=== PATIENT | female | born 1980 | race African-American/Black ===

== ENCOUNTER 2016-12-25 12:29 | Inpatient (IN) | payer BC, MEDICAID ==
[2016-12-25] MEDS ORDERED: RINGERS SOLUTION,LACTATED 300 ML IV ONE (14:31)
--- NOTE | 2016-12-25 14:52 | Non Stress Test Report ---
Non Stress Test Datetime Report Generated by CPN: 12/25/2016 14:52 DEMOGRAPHIC Test Number: 1 EGA NST: 40.1 INDICATION Indication for Study: Ordered by Provider; Other Indication for Study (NST) Other: Nonreactive NST MONITORING Monitor Explained: Monitor Explained; Test Explained; Patient Verbalized Understanding Time on Monitor: 12/25/2016 14:16 Time off Monitor: 12/25/2016 14:45 NST Duration: 29 NST INTERVENTIONS NST Interventions: PO Hydration; IV Fluids; Reposition Patient; For Biophysical Profile Physician Notified NST: Dr. Jerome/Dasia Burns CN BABY A: [id number] BABY A Movement : Present Contraction Frequency : Occ Accelerations : 15X15 Decelerations : None Variability : Moderate 6-25bpm NST Review: Meets Criteria for Reactive NST NST Review and Verified By : Dasia Frank RN NST Results: Reactive NST REPORT Report Trigger: Send Report
[2016-12-25 15:07] LABS: ABSOLUTE EOSINOPHILS # (AUTO) 0.1 10^3/uL (0.0-0.6); ABSOLUTE LYMPHOCYTES (AUTO) 1.5 10^3/uL (0.5-4.7); ABSOLUTE MONOCYTES (AUTO) 0.9 10^3/uL (0.1-1.4); ABSOLUTE NEUT (AUTO) 4.4 10^3/uL (1.7-8.2); BASOPHILS % (AUTO) 0.5 % (0-2); EOSINOPHILS % (AUTO) 1.6 % (0-6); HEMATOCRIT 34.7 % (36.0-47.0); HEMOGLOBIN 11.3 g/dL (12.0-15.5); HGB HCT DIFFERENCE -0.8; LYMPHOCYTES % (AUTO) 21.7 % (13-45); MEAN CORPUSCULAR HEMOGLOBIN 27.3 pg (27.0-33.4); MEAN CORPUSCULAR HGB CONC 32.6 g/dL (32.0-36.0); MEAN CORPUSCULAR VOLUME 84 fl (80-97); MONOCYTES % (AUTO) 12.4 % (3-13); RED BLOOD COUNT 4.14 10^6/uL (3.72-5.28); RED CELL DISTRIBUTION WIDTH 14.5 % (11.5-14.0); SEGMENTED NEUTROPHILS % (AUTO) 63.8 % (42-78)
[2016-12-25 15:09] LABS: APPEARANCE,URINE SLIGHTLY-CLOUDY; BILIRUBIN,URINE NEGATIVE (NEGATIVE); GLUCOSE, URINE NEGATIVE (NEGATIVE); KETONES,URINE NEGATIVE (NEGATIVE); LEUKOCYTE ESTERASE,URINE TRACE (NEGATIVE); NITRITE,URINE NEGATIVE (NEGATIVE); PROTEIN,URINE NEGATIVE (NEGATIVE); URINE SPECIFIC GRAVITY 1.011; UROBILINOGEN,URINE NEGATIVE mg/dL (<2.0)
[2016-12-25 15:46] LABS: URINE BARBITURATES SCREEN NEGATIVE; URINE METHADONE SCREEN NEGATIVE; URINE OPIATES LOW NEGATIVE; URINE PHENCYCLIDINE SCREEN NEGATIVE
--- NOTE | 2016-12-25 15:57 | RADIOLOGY REPORT (SQ) ---
EXAM DESCRIPTION: U/S PROFILE W/O STRESS COMPLETED DATE/TIME: 12/25/2016 3:36 pm REASON FOR STUDY: Nonreactive NST COMPARISON: None. TECHNIQUE: Limited bae-scale realtime and static images of the fetus to measure specified parameter s. LIMITATIONS: None. FINDINGS: HEART RATE: 152 beats per minute. POSTURE AND TONE: 2 points. MOVEMENT: 2 points. BREATHING MOVEMENT: 2 points. QUALITATIVE SARAH: 2 points. OTHER: Fetus is in cephalic presentation. IMPRESSION: BIOPHYSICAL PROFILE: 02/23. Trimester of : Third - 28 weeks to delivery COMMENT: BREATHING MOVEMENTS: 2 POINTS: PRESENT 0 POINTS: ABSENT MOTION: 2 POINTS: PRESENT 0 POINTS: ABSENT TONE: 2 POINTS: PRESENT 0 POINTS: ABSENT AMNIOTIC FLUID VOLUME: 2 POINTS: LARGEST POCKET GREATER THAN 2 CM DEPTH. 0 POINTS: NO POCKET OF 2 CM. TECHNICAL DOCUMENTATION: JOB ID: [id number] [employer]- All Rights Reserved
[2016-12-25] MEDS: RINGERS SOLUTION,LACTATED 1,000 ML IV PRN (15:59)
[2016-12-25] MEDS ORDERED: OXYTOCIN/NORMAL SALINE 20 UNIT/1,000 ML RTUINJ ONE (16:41)
[2016-12-25] MEDS: OXYTOCIN/NORMAL SALINE 1,000 ML IV PRN (16:51)
[2016-12-26] MEDS ORDERED: MISOPROSTOL 0.2 MG TABLET ONE (03:07)
[2016-12-26] MEDS ORDERED: OXYTOCIN/NORMAL SALINE 20 UNIT/1,000 ML RTUINJ ONE (03:07)
[2016-12-26] MEDS ORDERED: LIDOCAINE 1% INJ-PF (10 MG/ML) 30 ML SDV ONE (03:07)
[2016-12-26] MEDS ORDERED: EPHEDRINE SULFATE INJ 50 MG/1 ML AMPULE ONE (04:06)
[2016-12-26] MEDS ORDERED: BUPIVACAINE HCL 0.25 % INJ/PF (2.5 MG/1 ML) 30 ML VIAL ONE (04:06)
[2016-12-26] MEDS ORDERED: PHENYLEPHRINE HCL INJ/PF 10 MG/1 ML SDV ONE (04:06)
[2016-12-26] MEDS ORDERED: FENTANYL CITRATE INJ/PF 100 MCG/2 ML AMPUL ONE (04:06)
[2016-12-26] MEDS ORDERED: FENTANYL/BUPIVACAINE/NS/PF 0 MCG/0 ML RTUINJ EPI ONE (04:06)
[2016-12-26] MEDS ORDERED: ACETAMINOPHEN WITH CODEINE #3 TABLET ONE (04:59)
[2016-12-26] MEDS ORDERED: IBUPROFEN 800 MG TABLET ONE (04:59)
[2016-12-26] MEDS: RINGERS SOLUTION,LACTATED 1,000 ML IV PRN ×2 (06:29→06:30)
[2016-12-26] MEDS: OXYTOCIN/NORMAL SALINE 1,000 ML IV PRN (06:30)
[2016-12-26] MEDS ORDERED: DIPH/PERTUSS(ACELL)/TETANUS VAC/PF 0.5 ML SYR (>=10YO) IM PRN (06:36)
[2016-12-26] MEDS ORDERED: ACETAMINOPHEN WITH CODEINE #3 TABLET PO PRN ×2 (06:36)
[2016-12-26] MEDS ORDERED: BENZOCAINE/MENTHOL AEROSOL SPRAY 56 ML TOP PRN (06:36)
[2016-12-26] MEDS ORDERED: DIBUCAINE 1% OINTMENT 28 GM TP PRN (06:36)
[2016-12-26] MEDS ORDERED: ZOLPIDEM TARTRATE 5 MG TABLET PO PRN (06:36)
[2016-12-26] MEDS ORDERED: MEASLES,MUMPS&RUBELLA VACC/PF 0.5 ML VIAL SUBCUT PRN (06:36)
[2016-12-26] MEDS ORDERED: OXYTOCIN/NORMAL SALINE 1,000 ML IV PRN (06:36)
--- NOTE | 2016-12-26 06:52 | Admission Physical ---
Datetime Report Generated by CPN: 12/26/2016 06:52 CURRENT ADMISSION Indication for Induction: Indicated by Testing Admit Plan: Admit to Unit; Initiate Labor Induction Protocol ALLERGIES Medication Allergies: No Medication Allergies: No Known Allergies (12/25/2016) Medication Allergies: No Known Allergies (08/24/2013) Latex: No Latex Allergies Food Allergies: None Environmental Allergies: None OBSTETRICAL HISTORY EDC: 12/24/2016 00:00 : 2 Para: 1 Term: 1 : 0 SAB: 0 IAB: 0 Ectopic: 0 Livin Cesareans: 0 VBACs: 0 Multiple Births: 0 Gestational Diabetes: No Rh Sensitization: No Incompetent Cervix: No TOM: No Infertility: No ART Treatment: No Uterine Anomaly: No IUGR: No Hx Previous C/S: No Macrosomia: No Hx Loss/Stillborn: No PIH: No Hx : No Placenta Previa/Abruption: No Depression/PP Depression: No PTL/PROM: No Post Hemorrhage: No Current Procedures: Ultrasound; NST Obstetrical History Comments: G1 - 09/01 - at 40.1wks, 6lbs 13oz G2 - current SEE RECORDS Alcohol: No Marijuana : No Cocaine: No Other Illicit Drugs: No Cigarettes: Never Smoker. [id number] MEDICAL HISTORY Diabetes: No Blood Transfusion: No Pulmonary Disease (Asthma, TB): No Breast Disease: No Hypertension: No Engraver Machine Surgery: No Heart Disease: No Hosp/Surgery: Yes Autoimmune Disorder: No Anesthetic Complications: No Kidney Disease: No Abnormal Pap Smear: No Neuro/Epilepsy: No Psychiatric Disorders: No Other Medical Diseases: No Hepatitis/Liver Disease: No Significant Family History: No Varicosities/Phlebitis: No Trauma/Violence : No Thyroid Dysfunction: No Medical History Comments: 2009 - Appendectomy, Right ovary and fallopian tube removed INFECTIOUS HISTORY Gonorrhea: No Genital Herpes: No Chlamydia: No Tuberculosis: No Syphilis: No Hepatitis: No HIV/AIDS Exposure: No Rash or Viral Illness: No HPV: No PHYSICAL EXAM General: Normal HEENT: Normal Neurologic: Normal Thyroid: Deferred Heart: Normal Lungs: Normal Breast: Deferred Back: Normal Abdomen: Normal Genitourinary Exam: Deferred Extremities: Normal DTRs: Normal Pelvic Type: Adequate Physical Exam Comments: Gravid uterus Vital Signs: Reviewed; Within Normal Limits VAGINAL EXAM Dilatation: 2 Effacement: 70 Station: -1 MEMBRANES Membranes: Intact FETUS A Monitoring: External US FHR- Baseline: 140 Variability: Moderate 6-25bpm Presentation: Vertex Admit Comment: Equivocal heart rate tracing 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
--- NOTE | 2016-12-26 08:10 | Delivery Summary ---
Del Sum A-C Datetime Report Generated by CPN: 12/26/2016 08:10 DELIVERY PERSONNEL DELIVERY PERSONNEL: [id number] Delivery Doctor:: Ean Covarrubias DO Labor and Delivery Nurse:: An Claros RNoffset plate preparation supervisor Nurse:: Yany Solitario RN Shift Superintendent Caustic Cresylate:: PRISCILA Keith/RAILROAD CARMAN: Nancie Diggs, ST MATERNAL INFORMATION Delivery Anesthesia: Local Medications After Delivery: Pitocin Drip 20 Units/1000ml NSS Estimated Blood Loss (ml): 250 Maternal Complications: None Provider Comments: of viable female in OA position Placenta delievered spontaneous and intact with 3v ocrd Fundus firm LABOR SUMMARY EDC: 12/24/2016 00:00 No. Babies in Womb: 1 Attempted: No Labor Anesthesia: None LABOR INFORMATION Reason for Induction: Other Reason for Induction- Other: Nonreactive NST Onset of Labor: 12/26/2016 00:08 Complete Dilatation: 12/26/2016 04:25 Oxytocin: Induction Group B Beta Strep: Negative Steroids Given: None Reason Steroids Not Administered: Not Applicable MEMBRANES Membranes Rupture Method: Spontaneous Rupture of Membranes: 12/26/2016 03:31 Length of Rupture (hr): 1.10 Amniotic Fluid Color: Clear Amniotic Fluid Amount: Small Amniotic Fluid Odor: Normal STAGES OF LABOR Stage 1 hr: 4 Stage 1 min: 17 Stage 2 hr: 0 Stage 2 min: 12 Stage 3 hr: 0 Stage 3 min: 2 Total Time in Labor hr: 4 Total Time in Labor min: 31 VAGINAL DELIVERY Episiotomy: None Laceration Extension: First Degree Laceration Type: Periurethral Laceration Repair: Yes Laceration Repair Note: repaired with 3-0 chromic in usual fashion with good hemostasis Sponge Count Correct: N/A Sharps Count Correct: N/A CSECTION DELIVERY Primary Indication: N/A Secondary Indication: N/A CSection Incision: N/A BABY A INFORMATION Delivery Date/Time: 12/26/2016 04:37 Method of Delivery: Vaginal Born in Route : No : N/A Forceps: N/A Vacuum Extraction: N/A Shoulder Dystocia : No PRESENTATION/POSITION BABY A Presentation: Cephalic Cephalic Presentation: Vertex Vertex Position: Left Occipital Anterior Breech Presentation: N/A PLACENTA INFORMATION BABY A Placenta Delivery Time : 12/26/2016 04:39 Placenta Method of Delivery: Spontaneous Placenta Status: Delivered SCORES BABY A Heart Rate 1 min: >100 bpm Resp Effort 1 min: Slow, Irregular Reflex Irritability 1 min: Cough or Sneeze or Pulls Away Muscle Tone 1 min: Active Motion Color 1 min: Body Loop, Extremities Blue Resuscitation Effort 1 min: Tactile Stimulation SCORE 1 MIN: 8 Heart Rate 5 min: >100 bpm Resp Effort 5 min: Good Cry Reflex Irritability 5 min: Cough or Sneeze or Pulls Away Muscle Tone 5 min: Active Motion Color 5 min: Body Loop, Extremities Blue Resuscitation Effort 5 min: Tactile Stimulation SCORE 5 MIN: 9 INFANT INFORMATION BABY A Gestational Age at Delivery: 40.2 Gestational Status: Full Term- 39- 40.6 Weeks Infant Outcome : Liveborn Infant Condition : Stable Infant Sex: Female IDENTIFICATION BABY A Infant Verification Date/Time: 12/26/2016 05:45 ID Band Number: [id number] Mother's Name Verified: Yes RN Verifying Infant: aMsood Garcia Additional Verifying Personnel: Drake Solitario WEIGHT/LENGTH BABY A Birthweight (gm): 3210 Weight (lb): 7 Infant Weight (oz): 1 Infant Length (in): 19.50 Infant Length (cm): 49.53 CORD INFORMATION BABY A No. Cord Vessels: 3 Nuchal Cord : N/A Cord Blood Taken: Yes-For Storage (Mom's Blood type +) Infant Suction: Mouth; Nose ASSESSMENT BABY A Complications: Decreased Variability Physical Findings at Delivery: Within Normal Limits Physical Findings- Other: See complete nursery assessment Infant Respirations: Appears Normal Skin to Skin: Yes Skin to Skin Time (min): 60 Lacquer Sizer/ALS Called : No Infant Care By: Drake Solitario RN Transferred To: Remains with Mother BABY B INFORMATION : N/A SIGNATURES Signature: with User ID: [email or web address] : I personally evaluated and examined the patient in conjunction with the MLP and agree with the assessment, treatment plan and disposition.
[2016-12-26] MEDS: FERROUS SULFATE 325 MG TABLET PO SCH ×2 (09:30→17:27)
[2016-12-26] MEDS: DOCUSATE SODIUM 100 MG CAPSULE PO SCH ×2 (09:31→17:26)
[2016-12-26] MEDS: PRENATAL VITAMIN W-O CA NO5/FE FUMARATE/FA CAPSULE PO SCH (09:31)
[2016-12-26] MEDS: SENNOSIDES/DOCUSATE 8.6-50 MG 1 EACH TABLET PO SCH (10:31)
[2016-12-26] MEDS: IBUPROFEN 800 MG TABLET PO SCH ×2 (14:06→21:26)
[2016-12-27] MEDS: IBUPROFEN 800 MG TABLET PO SCH ×3 (05:37→21:50)
[2016-12-27 06:46] LABS: HEMATOCRIT 35.2 % (36.0-47.0); HEMOGLOBIN 11.2 g/dL (12.0-15.5); HGB HCT DIFFERENCE -1.6; MEAN CORPUSCULAR HEMOGLOBIN 27.2 pg (27.0-33.4); MEAN CORPUSCULAR HGB CONC 31.9 g/dL (32.0-36.0); MEAN CORPUSCULAR VOLUME 85 fl (80-97); RED BLOOD COUNT 4.13 10^6/uL (3.72-5.28); WHITE BLOOD COUNT 9.5 10^3/uL (4.0-10.5)
[2016-12-27] MEDS: PRENATAL VITAMIN W-O CA NO5/FE FUMARATE/FA CAPSULE PO SCH (09:23)
[2016-12-27] MEDS: SENNOSIDES/DOCUSATE 8.6-50 MG 1 EACH TABLET PO SCH (09:23)
[2016-12-27] MEDS: DOCUSATE SODIUM 100 MG CAPSULE PO SCH ×2 (09:23→17:42)
[2016-12-27] MEDS: FERROUS SULFATE 325 MG TABLET PO SCH ×2 (09:23→17:42)
--- NOTE | 2016-12-27 11:45 | PDOC PROGRESS REPORT ---
Subjective-OB Subjective: Post Delivery Day: 36 year old. Denies any needs at this time. Requesting discharge. Physical Exam (OB) Vital Signs: Temp Pulse Resp BP Pulse Ox 97.8 F 78 16 102/68 100 12/27/16 07:46 12/27/16 07:46 12/27/16 07:46 12/27/16 07:46 12/27/16 07:46 Intake & Output 12/26/16 12/27/16 12/28/16 06:59 06:59 06:59 Intake Total 350 Balance 350 Weight 86.9 kg - PIH/Pre-Eclampsia Clonus: Negative - Lochia Lochia Amount: Scant < 10 ml Lochia Color: Rubra/Red - Abdomen Description: Soft Hernia Present: No Bowel Sounds: Normoactive Flatus Presence: Present Stool: No Fundal Description: Firm, Midline Fundal Height: u/u - u/2 Objective-Diagnostic Laboratory: 12/27/16 06:20 12/27/16 06:20 WBC 9.5 RBC 4.13 Hgb 11.2 L Hct 35.2 L MCV 85 MCH 27.2 MCHC 31.9 L RDW 15.0 H Plt Count 272
--- NOTE | 2016-12-27 11:50 | PDOC DISCHARGE SUMMARY ---
Final Diagnosis Discharge Date: 12/27/16 - Final Diagnosis (1) Delivery normal Is this a current diagnosis for this admission?: Yes (2) History of Western blot positive for HSV1 Is this a current diagnosis for this admission?: Yes (3) Is this a current diagnosis for this admission?: Yes Discharge Data - Discharge Medication Home Medications: Pnv W-O Ca No5/Fe Fumarate/FA [-U Multiple Vitamin Capsule] 1 cap PO DAILY 01/20/13 Gestational Age: 40.2 wks Reason(s) for Admission: Induction of Labor Admission Note: Equivocal heart rate testing. Procedures: NST, Ultrasound Intrapartum Procedure(s): Spontaneous Vaginal Delivery Complication(s): Laceration-Periurethral Laceration-Degree: 1st - [place] Data Baby 1 Female at 1 minute: 8 at 5 minutes: 9 Weight: 3.203 kg Home with Mother: Yes Complications: No - Diagnosis Test Laboratory: Temp Pulse Resp BP Pulse Ox 97.8 F 78 16 102/68 100 12/27/16 07:46 12/27/16 07:46 12/27/16 07:46 12/27/16 07:46 12/27/16 07:46 12/25/16 12/25/16 12/27/16 14:10 14:39 06:20 RBC 4.14 4.13 Hgb 11.3 L 11.2 L Hct 34.7 L 35.2 L Urine Opiates Screen NEGATIVE - Discharge information/Instructions Discharge Activity: Activity As Tolerated, Balance Activity w/Rest, Pelvic Rest , Slowly Increase Activity, No tub bath Discharge Diet: Regular Disposition: HOME, SELF-CARE Follow up with: [facility] in: 4, Weeks
[2016-12-27] MEDS ORDERED: IBUPROFEN 800 MG TABLET ONE (13:20)
[2016-12-28] MEDS: IBUPROFEN 800 MG TABLET PO SCH (04:09)
[2016-12-28] MEDS: SENNOSIDES/DOCUSATE 8.6-50 MG 1 EACH TABLET PO SCH (09:55)
[2016-12-28] MEDS: PRENATAL VITAMIN W-O CA NO5/FE FUMARATE/FA CAPSULE PO SCH (09:55)
[2016-12-28] MEDS: FERROUS SULFATE 325 MG TABLET PO SCH (09:55)
[2016-12-28] MEDS: DOCUSATE SODIUM 100 MG CAPSULE PO SCH (09:55)
--- NOTE | 2016-12-28 10:26 | PDOC PROGRESS REPORT ---
Subjective-OB Subjective: Post Delivery Day: 36 year old. Denies any needs at this time Doing well, ready to go home, baby going today, eating well, scant bleeding, voiding Physical Exam (OB) Vital Signs: Temp Pulse Resp BP Pulse Ox 97.6 F 73 18 123/73 100 12/28/16 04:13 12/28/16 04:13 12/28/16 04:13 12/28/16 04:13 12/28/16 04:13 Intake & Output 12/27/16 12/28/16 12/29/16 06:59 06:59 06:59 Intake Total 350 Balance 350 Baby 1 Female 3.203 kg - PIH/Pre-Eclampsia Clonus: Negative Headache: Absent Visual Changes: No - Lochia Lochia Amount: Scant < 10 ml Lochia Color: Rubra/Red - Abdomen Description: Firm, Round Hernia Present: No Fundal Description: Firm, Midline Fundal Height: u/u - u/2 Objective-Diagnostic Laboratory: 12/27/16 06:20 Assessment and Plan(PN) - Assessment and Plan (1) History of Western blot positive for HSV1 Is this a current diagnosis for this admission?: Yes (2) Delivery normal Is this a current diagnosis for this admission?: Yes - Time Spent with Patient Time with patient: Less than 15 minutes Medications reviewed and adjusted accordingly: Yes - Disposition Anticipated Discharge: Home Within: Other - home today
--- NOTE | 2016-12-28 10:29 | PDOC DISCHARGE SUMMARY ---
Final Diagnosis Discharge Date: 12/28/16 - Final Diagnosis (1) History of Western blot positive for HSV1 Is this a current diagnosis for this admission?: Yes (2) Delivery normal Is this a current diagnosis for this admission?: Yes Discharge Data - Discharge Medication Home Medications: Pnv W-O Ca No5/Fe Fumarate/FA [-U Multiple Vitamin Capsule] 1 cap PO DAILY 01/20/13 Gestational Age: 40.2 Reason(s) for Admission: Induction of Labor Procedures: NST, Ultrasound Intrapartum Procedure(s): Spontaneous Vaginal Delivery Complication(s): Laceration-Periurethral Laceration-Degree: 1st - Data Baby 1 Female at 1 minute: 8 at 5 minutes: 9 Weight: 3.203 kg Home with Mother: Yes Complications: No - Diagnosis Test Laboratory: Temp Pulse Resp BP Pulse Ox 97.6 F 73 18 123/73 100 12/28/16 04:13 12/28/16 04:13 12/28/16 04:13 12/28/16 04:13 12/28/16 04:13 12/25/16 12/25/16 12/27/16 14:10 14:39 06:20 RBC 4.14 4.13 Hgb 11.3 L 11.2 L Hct 34.7 L 35.2 L Urine Opiates Screen NEGATIVE - Discharge information/Instructions Discharge Activity: Activity As Tolerated, Balance Activity w/Rest, Pelvic Rest , Slowly Increase Activity, No tub bath Discharge Diet: As Tolerated Disposition: HOME, SELF-CARE Follow up with: [facility] in: 4, Weeks
[2016-12-28 12:15] VITALS: BP 123/73
== END 2016-12-28 14:15 | disposition home or self-care (01) | DRG 774 ==
LOC: LC 12:29 → LR 14:19 → 2N 12-26 06:42
PROVIDERS: ADMIT Obstetrics & Gynecology; ATTEND Obstetrics & Gynecology
PROC: 4A1HXCZ Monitoring of Products of Conception, Cardiac Rate, External Approach (ICD-10-PCS; 2016-12-25)
PROC: 10E0XZZ Delivery of Products of Conception, External Approach (ICD-10-PCS; principal; 2016-12-26)
PROC: 0UQMXZZ Repair Vulva, External Approach (ICD-10-PCS; 2016-12-26)
DX: O98.52 Other viral diseases complicating childbirth (principal); O71.82 Other specified trauma to perineum and vulva; O76 Abnormality in fetal heart rate and rhythm complicating labor and delivery; B00.9 Herpesviral infection, unspecified; Z3A.40 40 weeks gestation of pregnancy; Z90.49 Acquired absence of other specified parts of digestive tract; Z37.0 Single live birth
CPT/HCPCS: 36415; 76819; 80307; 81005; 85025; 85027; 86592; 86850; 86900; 86901; J2370; J2590; J3010; J3490

== ENCOUNTER 2017-11-08 20:32 | Emergency (ER) | payer MEDICAID ==
[2017-11-08] MEDS ORDERED: ASPIRIN 81 MG TABLET, CHEWABLE PO ONE (22:13)
--- NOTE | 2017-11-08 22:14 | ER Document Report ---
ED Medical Screen (RME) - General Chief Complaint: Chest Pain Stated Complaint: CHEST PAIN Time Seen by Provider: 11/08/17 22:12 Notes: Patient is a 37-year-old female who presents emergency department the chief complaint of chest pain. Patient states that this pain is not exertional. She states that she notices it when she is sitting in they are fleeting sharp stabbing pains in substernal location. She states that they have been going on intermittently for the past 2 months but she feels like over the past couple of days they have been more frequent. States that his noticeable with deep inhalation. Patient denies any tobacco use, estrogen use, recent travel or recent surgeries. Denies any past medical history for DVT, PE, ACS. Otherwise healthy female not taking any medications. TRAVEL OUTSIDE OF THE [place] IN LAST 30 DAYS: No - Related Data Allergies/Adverse Reactions: No Known Allergies Allergy (Unverified 12/25/16 14:31) Past Medical History Past Surgical History: Reports: Hx Appendectomy, Hx Gynecologic Surgery - Right ovary and fallopian tube removed Physical Exam - Vital signs Vitals: Temp Pulse Resp BP Pulse Ox 98.1 F 70 16 136/78 H 98 11/08/17 20:52 11/08/17 20:52 11/08/17 20:52 11/08/17 20:52 11/08/17 20:52 - Notes Notes: PHYSICAL EXAM GENERAL: Alert, interacts well. HEAD: Normocephalic, atraumatic. LUNGS: Clear to auscultation bilaterally, no wheezes, rales, or rhonchi. No respiratory distress. HEART: Regular rate and rhythm. No murmurs, gallops, or rubs. NEUROLOGICAL: Alert and oriented x4. Normal speech. PSYCH: Normal affect, normal mood. SKIN: Warm, dry, normal turgor. No rashes or lesions noted. Course - Vital Signs Vital signs: Temp Pulse Resp BP Pulse Ox 98.1 F 70 16 136/78 H 98 11/08/17 20:52 11/08/17 20:52 11/08/17 20:52 11/08/17 20:52 11/08/17 20:52
[2017-11-08 22:33] LABS: ABSOLUTE BASOPHILS # (AUTO) 0.1 10^3/uL (0.0-0.2); ABSOLUTE EOSINOPHILS # (AUTO) 0.2 10^3/uL (0.0-0.6); ABSOLUTE LYMPHOCYTES (AUTO) 2.5 10^3/uL (0.5-4.7); ABSOLUTE MONOCYTES (AUTO) 0.9 10^3/uL (0.1-1.4); BASOPHILS % (AUTO) 0.9 % (0-2); EOSINOPHILS % (AUTO) 2.7 % (0-6); HEMOGLOBIN 12.5 g/dL (12.0-15.5); LYMPHOCYTES % (AUTO) 38.1 % (13-45); MEAN CORPUSCULAR HEMOGLOBIN 27.3 pg (27.0-33.4); MEAN CORPUSCULAR HGB CONC 32.8 g/dL (32.0-36.0); MEAN CORPUSCULAR VOLUME 83 fl (80-97); MONOCYTES % (AUTO) 12.9 % (3-13); PLATELET COUNT 345 10^3/uL (150-450); RED BLOOD COUNT 4.57 10^6/uL (3.72-5.28); RED CELL DISTRIBUTION WIDTH 14.9 % (11.5-14.0); SEGMENTED NEUTROPHILS % (AUTO) 45.4 % (42-78); TOTAL CELLS COUNTED % (AUTO) 100 %; WHITE BLOOD COUNT 6.6 10^3/uL (4.0-10.5)
[2017-11-08 22:47] LABS: ALANINE AMINOTRANSFERASE 17 U/L (9-52); ALBUMIN 4.3 g/dL (3.5-5.0); ALKALINE PHOSPHATASE 76 U/L (38-126); ANION GAP 12 (5-19); ASPARTATE AMINO TRANSFERASE 18 U/L (14-36); BILIRUBIN,DIRECT 0.2 mg/dL (0.0-0.4); BILIRUBIN,TOTAL 0.2 mg/dL (0.2-1.3); BLOOD UREA NITROGEN 15 mg/dL (7-20); CALCIUM 9.6 mg/dL (8.4-10.2); CARBON DIOXIDE 27 mmol/L (22-30); CHLORIDE 104 mmol/L (98-107); CREATINE KINASE 135 U/L (30-135); GLUCOSE 89 mg/dL (75-110); POTASSIUM 4.3 mmol/L (3.6-5.0); SODIUM 142.5 mmol/L (137-145); TOTAL PROTEIN 8.2 g/dL (6.3-8.2)
[2017-11-08 22:58] LABS: CREATINE KINASE MB 0.24 ng/mL (<4.55)
[2017-11-08 23:00] LABS: TROPONIN I < 0.012 ng/mL
--- NOTE | 2017-11-08 23:48 | ER Document Report ---
ED General - General Chief Complaint: Chest Pain Stated Complaint: CHEST PAIN Time Seen by Provider: 11/08/17 22:12 Notes: Patient is a pleasant 37-year-old female presents with complaint of chest pain. Chest pain been intermittent for over a month. She says it occurs in the same spot every time. So is over her left lower ribs in lots times affected by taking a deep breath. No recent fevers. No infections. She saw a doctor earlier today who did a chest x-ray. She did bring a CD and I did review the chest x-ray images and I do not see any obvious abnormality. She denies any history of cardiac disease. She is otherwise healthy. Pain is not affected by exertion. No recent leg pain or leg swelling. She does not smoke. TRAVEL OUTSIDE OF THE [place] IN LAST 30 DAYS: No - Related Data Allergies/Adverse Reactions: No Known Allergies Allergy (Unverified 12/25/16 14:31) Past Medical History - Social History Smoking Status: Never Smoker Frequency of alcohol use: None Drug Abuse: None Family History: Reviewed & Not Pertinent Past Surgical History: Reports: Hx Appendectomy, Hx Gynecologic Surgery - Right ovary and fallopian tube removed Review of Systems - Review of Systems Notes: My Normal Review Basic REVIEW OF SYSTEMS: CONSTITUTIONAL : Denies fever, chills, or sweats. Denies recent illness. CARDIOVASCULAR: Chest pain RESPIRATORY: Denies cough, cold, or chest congestion. Denies shortness of breath, difficulty breathing, or wheezing. GASTROINTESTINAL: Denies abdominal pain. Denies nausea, vomiting, or diarrhea. Denies constipation. Last BM: GENITOURINARY: Denies difficulty urinating, painful urination, burning, frequency, or blood in urine. SKIN: Denies rash or skin lesions. NEUROLOGICAL: Denies altered mental status or loss of consciousness. Denies headache. Denies weakness or paralysis or loss of use of either side. Denies problems with gait or speech. Denies sensory or motor loss. ALL OTHER SYSTEMS REVIEWED AND NEGATIVE. Physical Exam - Vital signs Vitals: Temp Pulse Resp BP Pulse Ox 98.1 F 70 16 136/78 H 98 11/08/17 20:52 11/08/17 20:52 11/08/17 20:52 11/08/17 20:52 11/08/17 20:52 - Notes Notes: General Appearance: Well nourished, alert, cooperative, no acute distress, no obvious discomfort. Vitals: reviewed, See vital signs table. Head: no swelling or tenderness to the head Eyes: PERRL, EOMI, Conjuctiva clear Mouth: No decreasd moisture Lungs: No wheezing, No rales, No rhonci, No accessory muscle use, good air exchange bilaterally. Heart: Normal rate, Regular rythm, No murmur, no rub Chest wall: No reproducible pain palpation of chest wall. Extremities: strength 5/5 in all extremities, good pulses in all extremities, no swelling or tenderness in the extremities, no edema. Skin: warm, dry, appropriate color, no rash Neuro: speech clear, oriented x 3, normal affect, responds appropriately to questions. Course - Re-evaluation Re-evalutation: 11/09/17 00:45 Patient has what sounds to be pleuritic pain. Is worse sometimes when she takes deep breath. It is a very quick sharp pain that always affects the exact same location. Her vital signs are completely normal. Her d-dimer is negative. I therefore do not feel that we need to proceed with CTA of the chest to rule out PE as she is low risk with a negative d-dimer. She does not have any significant coronary artery risk factors and her cardiac enzymes that were ordered in triage are negative. Chest x-ray that was performed at the outside facility does not show any concerning findings. EKG is normal. I talked her length about her workup today. Informed her she should return to ER if her pain changes location or if it worsens or she feels short of breath. I encouraged her follow-up closely with her primary care doctor. I encourage her take Tylenol Motrin for pain. I informed her to take Motrin with food so it does not irritate her stomach. Patient agrees with plan will be discharged home. Dictation of this chart was performed using voice recognition software; therefore, there may be some unintended grammatical errors. - Vital Signs Vital signs: Temp Pulse Resp BP Pulse Ox 98.0 F 79 16 130/76 H 100 11/08/17 23:55 11/08/17 23:55 11/08/17 23:55 11/08/17 23:55 11/08/17 23:55 - Laboratory Result Diagrams: 11/08/17 22:15 11/08/17 22:15 Laboratory results interpreted by me: 11/08/17 22:15 RDW 14.9 H - EKG Interpretation by Me Additional EKG results interpreted by me: 11/08/17 23:50 EKG is reviewed and interpreted by me. EKG showed normal sinus rhythm with a rate of [address] segment elevation or depression. No ischemic T-wave inversions. SD interval, QRS duration, QTc intervals are within normal range. Discharge - Discharge Clinical Impression: Chest pain Condition: Good Disposition: HOME, SELF-CARE Additional Instructions: Your workup today did not show any evidence of anything life threatening in regards to your chest pain. I suspect your pain could be related to pleurisy being that it is focal, sharp, and sometimes worse with a deep breath. Please continue to follow up with your new doctor. please return to the ER immediately if your pain changes in location, you have difficulty breathing, fevers, or feel that you are worsening.
[2017-11-08 23:56] VITALS: BP 130/76
--- NOTE | 2017-11-09 07:48 | EKG REPORT ---
SEVERITY:- NORMAL ECG - SINUS RHYTHM : Confirmed by: Pranay Wilkins MD 09-Nov-2017 07:47:14
== END 2017-11-09 00:17 | disposition home or self-care (01) ==
LOC: ER 20:32
DX: R07.81 Pleurodynia (principal)
CPT/HCPCS: 36415; 80053; 82550; 82553; 84484; 85025; 85379; 93005; 93010; 99285